=== PATIENT | male | born 1990 | race Caucasian/White ===

== ENCOUNTER → 2017-03-23 | Outpatient (CLI) | payer OTHER ==
--- NOTE | 2017-03-23 10:54 | RAD ---
Lumbar spine, 3 views, 03/23/2017: History: Back pain The lumbar vertebral heights and intervertebral disc spaces are well-maintained. A couple of minimal Schmorl's nodes are noted along the superior endplates at L3 and L4. No fracture or dislocation is identified. The paraspinous soft tissues are unremarkable. IMPRESSION: No acute lumbar spine abnormality is detected.
== END | disposition home or self-care (01) ==
LOC: DXRAD 10:09
PROVIDERS: ATTEND Family Medicine
DX: M54.5 Low back pain (principal)
CPT/HCPCS: 72100